=== PATIENT | female | born 1950 | race Caucasian/White ===

== ENCOUNTER 2018-07-15 07:40 | Day surgery (SDC) | payer MEDICARE, OTHER ==
[2018-07-15] MEDS ORDERED: fentaNYL* 50 MCG/ML 2 ML VIAL (100 MCG VIAL) ONE (08:39)
[2018-07-15] MEDS ORDERED: Midazolam* 1 MG/ML 2 ML VIAL (2 MG) ONE ×2 (08:40→09:10)
[2018-07-15 09:42] VITALS: BP 102/71
--- NOTE | 2018-07-15 12:39 | OP ---
DATE OF OPERATION/DATE OF DICTATION: 07/15/2018 - [facility] DATE OF : 1950. SURGEON: Dr. Amilcar Cardenas. PUBLIC POLICY MANAGER: None. ANESTHESIA: Topical with intravenous sedation. PRE-OP DIAGNOSIS: Cataract, right eye. POST-OP DIAGNOSIS: Cataract, right eye. OPERATIVE PROCEDURE: Phacoemulsification and cataract extraction with posterior chamber intraocular lens implant, right eye. COMPLICATIONS: None. BLOOD LOSS: None. DESCRIPTION OF PROCEDURE: The patient was brought to the operating room and received a small amount of intravenous sedation. A drop of Tetracaine was placed in her right eye. She was prepped and draped in the usual sterile fashion for ophthalmic surgery and attention was directed to the right eye where a speculum was placed. A paracentesis was created at the 11 o'clock position and 0.1 cc of 1 percent preservative-free Lidocaine was injected into the anterior chamber followed by DisCoVisc. The eye was digitally stabilized while a 2.75 mm keratome was used to create a triplanar clear corneal incision at the 9 o'clock position. A continuous curvilinear capsulorrhexis was created with a cystotome and Utrata forceps. BSS on a cannula was used to hydrodissect the lens from the capsule. Phacoemulsification was performed in a divide-and- conquer technique to create four fragments which were removed. Residual cortical material was removed with irrigation and aspiration. DisCoVisc was used to inflate the capsular bag and an AUOOTO 18.0 diopter lens was folded and inserted into the capsular bag. DisCoVisc was removed using irrigation and aspiration. BSS on a cannula was used to hydrate the corneal stroma and seal the wound. At the end of the case the pupil was round and the lens was centered. The eye was of normal pressure and the wound was water tight. The speculum was removed and topical Maxitrol ointment was placed on the surface of the eye. The eye was closed, patched and shielded and the patient was sent to the recovery room in stable condition with post operative instructions and follow-up appointment given. [id number]/[facility] #: [id number] MTDD
[2018-07-15] MEDS ORDERED: Neomycin/Polymy/Dex OPHTH.OIN* 3.5 GM ONE (16:09)
[2018-07-15] MEDS ORDERED: Lidocaine 1%* 5 ML VIAL ONE (16:09)
[2018-07-15] MEDS ORDERED: Tetracaine 0.5% OPTH.SOL 4 ML* 1 DROP BTL ONE (16:09)
[2018-07-15] MEDS ORDERED: Phenylephrine 2.5% OPTH.SOL* 2 ML BTL ONE (16:09)
[2018-07-15] MEDS ORDERED: Tropicamide 1% OPTH.SOL* BTL ONE (16:09)
[2018-07-15] MEDS ORDERED: Ketorolac 0.5% OPHTH (NF) 0.5 % 5 ML BTL ONE (16:09)
[2018-07-15] MEDS ORDERED: Cyclopentolate 1% OPTH.SOL* 2 ML BTL ONE (16:09)
== END 2018-07-15 09:37 | disposition home or self-care (01) ==
LOC: OREAST 07:40
PROVIDERS: ATTEND Ophthalmology
DX: H25.041 Posterior subcapsular polar age-related cataract, right eye (principal); E78.5 Hyperlipidemia, unspecified; K21.9 Gastro-esophageal reflux disease without esophagitis
CPT/HCPCS: A9270-GY; J2250; J3010; V2632

== ENCOUNTER 2018-07-22 08:26 | Day surgery (SDC) | payer MEDICARE, OTHER ==
[~2018-07-22 08:26] MED LIST: Acetaminophen TAB* 325 MG PO PRN; Buffered Lidocaine 0.9% SYRIN* 5 ML/SYR SYRINGE INTRADERM ONE
[2018-07-22 08:46] VITALS: BP 113/65
[2018-07-22] MEDS ORDERED: Midazolam* 1 MG/ML 2 ML VIAL (2 MG) ONE ×2 (10:01→11:40)
[2018-07-22] MEDS ORDERED: fentaNYL* 50 MCG/ML 2 ML VIAL (100 MCG VIAL) ONE (10:01)
[2018-07-22] MEDS ORDERED: Acetaminophen TAB* 325 MG ONE (11:25)
[2018-07-22] MEDS ORDERED: Lidocaine 1%* 5 ML VIAL ONE (13:34)
[2018-07-22] MEDS ORDERED: Tropicamide 1% OPTH.SOL* BTL ONE (13:34)
[2018-07-22] MEDS ORDERED: Tetracaine 0.5% OPTH.SOL 4 ML* 1 DROP BTL ONE (13:34)
[2018-07-22] MEDS ORDERED: Ketorolac 0.5% OPHTH (NF) 0.5 % 5 ML BTL ONE (13:34)
[2018-07-22] MEDS ORDERED: Neomycin/Polymy/Dex OPHTH.OIN* 3.5 GM ONE (13:34)
[2018-07-22] MEDS ORDERED: Cyclopentolate 1% OPTH.SOL* 2 ML BTL ONE (13:34)
[2018-07-22] MEDS ORDERED: Phenylephrine 2.5% OPTH.SOL* 2 ML BTL ONE (13:34)
--- NOTE | 2018-07-23 03:01 | OP ---
DATE OF OPERATION: 07/22/18 - [facility] DATE OF : [birth year]. SURGEON: Dr. Amilcar Cardenas. PHYSICIST SOLID STATE: None. ANESTHESIA: Topical MAC. PRE-OP DIAGNOSIS: Cataract, left eye. POST-OP DIAGNOSIS: Cataract, left eye. OPERATIVE PROCEDURE: Phacoemulsification and cataract extraction with posterior chamber intraocular lens implant, left eye. COMPLICATIONS: Posterior capsular tear. DESCRIPTION OF PROCEDURE: The patient was brought to the operating room and received a drop of tetracaine to her left eye. She was given intravenous sedation. The patient was prepped and draped in the usual sterile fashion for ophthalmic surgery and attention was directed to the left eye where a speculum was placed. A paracentesis was created at the 5 o'clock position and 0.1 cc of 1 % preservative- free Lidocaine was injected into the anterior chamber followed by DisCoVisc. The eye was digitally stabilized. A 2.75 mm keratome was used to create a triplanar clear corneal incision. A continuous curvilinear capsulorrhexis was created with a cystotome and Utrata forceps. BSS on the cannula was used to hydrodissect the lens from the capsule. Phacoemulsification was performed in a [id number]-njx-stcfrfv technique to create four fragments which were removed. Residual cortical material was removed with irrigation and aspiration. Capsular polishing was undertaken. At this point, a small fiona in the posterior capsule was noted, possibly due to the active polishing; however, no vitreous presented itself. DisCoVisc was used to tamponade the area and inflate the capsular bag and an AU00T0 18.5 diopter as planned was introduced into the capsular bag. Viscoelastic was removed gently with irrigation and aspiration with care not to enlarge the posterior capsular tear or pull vitreous forward. BSS on the cannula was used to hydrate the corneal stroma and seal the wound. At the end of the case the pupil was round and the lens was centered and stable. The eye pressure appeared normal and there was no vitreous visible. The wound was watertight, so the speculum was removed and topical Maxitrol ointment was placed on the surface of the eye. The eye was closed, patched and shielded and the patient was sent to the recovery room in stable condition with post operative instructions and follow- up appointment given. [id number]/[facility] #: [id number] [facility] HOSPITALElle
== END 2018-07-22 11:34 | disposition home or self-care (01) ==
LOC: OREAST 08:26
PROVIDERS: ATTEND Ophthalmology
DX: H25.12 Age-related nuclear cataract, left eye (principal); K21.9 Gastro-esophageal reflux disease without esophagitis; Z88.0 Allergy status to penicillin; Z88.2 Allergy status to sulfonamides
CPT/HCPCS: A9270-GY; J2250; J3010; V2632

== ENCOUNTER 2018-10-31 09:37 | Emergency (ER) | payer MEDICARE, OTHER ==
--- OUTSIDE RECORDS SUMMARY | 2018-10-31 09:51 | XMS REPORT | Continuity of Care Document ---
:1950 Author Organization [facility] Support Name Relationship Address Phone DIMITRI RENEE spouse [address] [place] [address] [place] [address] DIMITRI RENEE spouse [address] [place] [address] [place] [address] Allergies and Intolerances Code Code Allergy Type Reaction Severity Start End Date Status System Substance Date 7986 RXNorm Penicillins Drug Unknown Active allergy (disorder) 85730 RXNorm Sulfa Drug Unknown Active (Sulfonamide allergy Antibiotics) (disorder) 4053 RXNorm Erythromycin Drug Unknown Active Base allergy (disorder) Medications RxNorm Medication Dose Route Instructions Start Date End Date Status ca oral orally daily Active ibuprofen oral orally prn pain Active mvi oral orally daily Active Problems Code Code System Problem Name Start Date End Date Status 018510452 SNOMED-CT Backache U Active Procedures Code Code System Procedure Date LEFT BREAST LUMPECTOMY U Results Laboratory Results Order: VIT D 25 HYDROXY Specimen Source: Body Site: Legend: (G,H)=High, (GG,HH,CH,#H)=Above High Threshold, (#,L)=Low, (# #,CL,#L,LL)=Below Low Threshold, (C,CC,CA,#A,A)=Abnormal LOINC Test Result Flag Range Units Date 10072-0 1Vit D+metab SerPl-mCnc 49 30-95 NG/ML 10/15/2018 09:48 Interpretive 1VITAMIN D STATUS VITAMIN D Level Stephanie: DEFICIENCY <20 NG/ML INSUFFICIENCY 20-30 NG/ML SUFFICIENCY 31-96 NG/ML POTENTIAL TOXICITY >96 NG/ML Performing Lab Footnotes:[facility] - [id number] - [address] [place] [address] ROSA LANDERSOMD1 Social History Code Code System Social History Description Dates Observed Observation 262905629 SNOMED CT Current Smoking Unknown if ever Status smoked UNK AdministrativeGender Sex Assigned At Unknown Vital Signs No data in the system Goals Section No data in the system Health Concerns No data in the systemEncounter Diagnosis Date Code Code System Diagnosis Status M85.89 ICD10 OTH D/O BONE DENSITY STRUCT MX SITE Active Advance Directives HEALTH [facility] Directive Type Effective Date Rn Documentation Specialist Notes Supporting Document Name Address Phone No Directive 12/24/2011 Not Not Not dimitri Yes Type 10:45:42 AM Specified Specified Specified [place]--[phone] specified Family History No data in the system Functional Status No data in the system Immunizations No data in the system Medical Equipment No data in the system Mental Status No data in the system Assessment and Plan Assessments No data in the systemPlan Of Treatment No data in the systemPending Tests No data in the system Hospital Discharge Instructions No data in the system Reason for Visit No data in the system
[2018-10-31 09:54] VITALS: BP 127/77
--- NOTE | 2018-10-31 10:05 | UC ---
Minor Trauma HPI - HPI Summary HPI Summary: 67-year-old female presents with complaints of headache and left upper arm pain after slipping and falling 1 week ago. States she slipped on some ice in the parking lot of [employer] striking her left arm and the back of her head on a metal container that has some propane fuel. States she initially felt okay after the injury since that time has had a persistent "throbbing" headache that has waxed and waned with intensity. She has noticed some tenderness and bruising to her mid left upper arm. Denies visual disturbances, dizziness, vertigo, confusion, memory loss, weakness, numbness, tingling of the extremities , chest pain, palpitations, shortness of breath, abdominal pain, nausea, vomiting, or any other injury. - History of Current Complaint Chief Complaint: UCHeadInjury Stated Complaint: HEADACHES DO TO FALL Time Seen by Provider: 10/31/18 10:02 Hx Obtained From: Patient Pain Intensity: 8 - Allergies/Home Medications Allergies/Adverse Reactions: Allergies Allergy/AdvReac Type Severity Reaction Status Date / Time erythromycin base Allergy Hives Verified 10/31/18 09:55 Penicillins Allergy Hives Verified 10/31/18 09:55 Sulfa (Sulfonamide Allergy Hives Verified 10/31/18 09:55 Antibiotics) PMH/Surg Hx/FS Hx/Imm Hx Endocrine History: Dyslipidemia Other History Of: Negative For: Anticoagulant Therapy - Surgical History Surgical History: Yes Surgery Procedure, Year, and Place: hysterectomy 12/2011. left breast lumpectomy [facility] 6 YEARS AGO - Family History Known Family History: Positive: Non-Contributory - Social History Occupation: Retired Lives: With Family Alcohol Use: Occasionally Substance Use Type: None Smoking Status (MU): Never Smoked Tobacco Have You Smoked in the Last Year: No - Immunization History Most Recent Tetanus Shot: 2011 Review of Systems All Other Systems Reviewed And Are Negative: Yes Constitutional: Positive: Negative Skin: Positive: Bruising Eyes: Negative: Blurred Vision, Diplopia, Photophobia Respiratory: Negative: Shortness Of Breath Cardiovascular: Negative: Palpitations, Chest Pain Gastrointestinal: Negative: Abdominal Pain, Vomiting, Nausea Genitourinary: Positive: Negative Motor: Negative: Weakness Neurovascular: Negative: Decreased Sensation Musculoskeletal: Positive: Other: - See HPI Neurological: Positive: Headache. Negative: Weakness, Paresthesia, Numbness Is Patient Immunocompromised?: No Physical Exam - Summary Physical Exam Summary: GENERAL APPEARANCE: Well developed, well nourished, alert and cooperative, and appears to be in no acute distress. HEAD: Atraumatic. normocephalic. EYES: PERRL, EOM intact. Vision is grossly intact. EARS: External auditory canals and tympanic membranes clear, hearing grossly intact. NOSE: No nasal discharge. THROAT: Oral cavity and pharynx normal. No inflammation, swelling, exudate, or lesions. Teeth and gingiva in good general condition. NECK: Neck supple, non-tender. CARDIAC: Normal S1 and S2. No S3, S4 or murmurs. Rhythm is regular. There is no peripheral edema, cyanosis or pallor. Extremities are warm and well perfused. Capillary refill is less than 2 seconds. LUNGS: Clear to auscultation without rales, rhonchi, wheezing or diminished breath sounds. ABDOMEN: Positive bowel sounds. Soft, nondistended, nontender. No guarding or rebound. No masses or hepatosplenomegally. MUSKULOSKELETAL: ROM intact to all extremities. No joint erythema or tenderness. Normal muscular development. Normal gait. BACK: Examination of the spine reveals normal posture, no spinal deformity or tenderness, decreased range of motion or muscular spasm. EXTREMITIES: Tenderness and ecchymosis to left mid humerus without gross deformity. Peripheral pulses intact. NEUROLOGICAL: CN II-XII intact. Strength and sensation symmetric and intact throughout. Reflexes 2+ throughout. Cerebellar testing normal. SKIN: Skin normal color, texture and turgor. Triage Information Reviewed: Yes Vital Signs: Initial Vital Signs Temp 97 F 10/31/18 09:50 Pulse 89 10/31/18 09:50 Resp 18 10/31/18 09:50 BP 127/77 10/31/18 09:50 Pulse Ox 99 10/31/18 09:50 Vital Signs Reviewed: Yes Diagnostics - Radiology No standard instances Radiology Interpretation Completed By: Radiologist Summary of Radiographic Findings: Patient Name: TORIBIO RENEE . Ordering Physician: Syd Robles NP Acct.#: [id number]. : 1950 Age: 67 Sex: F Location: [facility]. Exam Date: 10/31/18 1016 ADM Status: REG ER. Order Information: CT BRAIN WO. Accession Number: [id number]. CPT: 12814. HISTORY: TOLENTINO s/p head injury. COMPARISONS: None. TECHNIQUE: Multiple contiguous axial CT scans were obtained of the head without intravenous contrast. FINDINGS: HEMORRHAGE/INFARCT: There is no hemorrhage or acute infarct. MASSES/SHIFT: There is no mass or shift. EXTRA- AXIAL SPACES: There are no extra-axial fluid collections. SULCI AND VENTRICLES : The sulci and ventricles are normal in size and position for the patient's stated age. CEREBRUM: There are no focal parenchymal abnormalities. BRAINSTEM : There are no focal parenchymal abnormalities. CEREBELLUM: There are no focal parenchymal abnormalities. VESSELS: The vessels are grossly normal. PARANASAL SINUSES: The paranasal sinuses are clear. ORBITS: The orbits are unremarkable. BONES AND SOFT TISSUE: No bone or soft tissue abnormalities are noted. OTHER : None. IMPRESSION: NO ACUTE INTRACRANIAL PATHOLOGY. Order Information: HUMERUS LEFT. Accession Number: [id number]. CPT: 83357. HISTORY: pain s/p fall. COMPARISONS: None. VIEWS: 2 , Frontal internal rotation and external rotation views of the left humerus. FINDINGS: BONE DENSITY: There is diffuse osteopenia. BONES: There is no displaced fracture. 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 and glenohumeral joints. ALIGNMENT: There is no dislocation. SOFT TISSUES: Unremarkable. OTHER FINDINGS: None. IMPRESSION: NO ACUTE OSSEOUS INJURY. Minor Trauma Course/Dx - Course Course Of Treatment: 67-year-old female presents with complaints of headache and left upper arm pain after slipping and falling 1 week ago. States she slipped on some ice in the parking lot of [employer] striking her left arm and the back of her head on a metal container that has some propane fuel. States she initially felt okay after the injury since that time has had a persistent "throbbing" headache that has waxed and waned with intensity. She has noticed some tenderness and bruising to her mid left upper arm. Denies visual disturbances, dizziness, vertigo, confusion, memory loss, weakness, numbness, tingling of the extremities, chest pain, palpitations, shortness of breath, abdominal pain, nausea, vomiting, or any other injury. Afebrile. VSS. Exam was overall unremarkable except for a minor contusion to her left upper arm. CT head negative. X-ray left upper arm negative. Recommend conservative treatment for closed head injury and left upper arm contusion. She is to follow up with her PCP in 3 days if no improvement in symptoms. Anticipatory guidance and warning symptoms were reviewed with the patient and spouse. Verbalizes understanding and agrees with POC. - Differential Dx/Diagnosis Provider Diagnosis: Closed head injury without loss of consciousness, Contusion of left upper arm Discharge - Sign-Out/Discharge Documenting (check all that apply): Patient Departure All imaging exams completed and their final reports reviewed: Yes - Discharge Plan Condition: Stable Disposition: HOME Patient Education Materials: Head Injury (ED), Contusion in Adults (ED) Referrals: Katie Williamson MD [Primary Care Provider] - 3 Days (If no improvement in symptoms.) Additional Instructions: The CT scan of your head and the x-ray of your arm performed in the clinic today were both normal. Take acetaminophen (Tylenol) or ibuprofen (Advil, Motrin) according to directions as needed for pain. Follow up with you primary care provider in 3 days if there is no improvement in your symptoms. Seek immediate medical attention in the emergency room if your headache worsens despite taking pain medication, you have visual disturbances, confusion, memory loss, dizziness, slurrred or difficulty speaking, weakness, numbness, or tingling in the arms or legs, chest pain, shortness of breath, abdominal pain, persistent vomiting, or any worsening of symptoms. - Billing Disposition and Condition Condition: STABLE Disposition: Home
== END 2018-10-31 11:10 | disposition home or self-care (01) ==
LOC: UCEAST 09:37
DX: S09.90XA Unspecified injury of head, initial encounter (principal); S40.022A Contusion of left upper arm, initial encounter; W00.0XXA Fall on same level due to ice and snow, initial encounter; Y93.01 Activity, walking, marching and hiking; Y92.481 Parking lot as the place of occurrence of the external cause; Z88.1 Allergy status to other antibiotic agents; Z88.0 Allergy status to penicillin; Z88.2 Allergy status to sulfonamides
CPT/HCPCS: 70450; 99211; G0463

== ENCOUNTER 2019-01-26 16:42 | Emergency (ER) | payer MEDICARE, OTHER ==
[2019-01-26 16:58] VITALS: BP 116/79
--- NOTE | 2019-01-26 17:09 | UC ---
Bite Injury/Animal HPI - HPI Summary HPI Summary: 68-year-old female comes in with chief complaint of a tick attached to the posterior aspect of her left leg. She felt nauseous prior to arrival. She's not sure when he got attached. It's painful to touch. It's less painful when she doesn't touch it. No fevers or chills feels well otherwise. - History of Current Complaint Chief Complaint: UCSkin Stated Complaint: TICK BITE Time Seen by Provider: 01/26/19 17:01 Pain Intensity: 2 - Allergies/Home Medications Allergies/Adverse Reactions: Allergies Allergy/AdvReac Type Severity Reaction Status Date / Time erythromycin base Allergy Hives Verified 01/26/19 16:58 Penicillins Allergy Hives Verified 01/26/19 16:58 Sulfa (Sulfonamide Allergy Hives Verified 01/26/19 16:58 Antibiotics) PMH/Surg Hx/FS Hx/Imm Hx Previously Healthy: Yes Other History Of: Negative For: Anticoagulant Therapy - Surgical History Surgical History: Yes Surgery Procedure, Year, and Place: hysterectomy 12/2011. left breast lumpectomy [facility] 6 YEARS AGO - Family History Known Family History: Positive: Non-Contributory - Social History Alcohol Use: Occasionally Substance Use Type: None Smoking Status (MU): Never Smoked Tobacco Have You Smoked in the Last Year: No - Immunization History Most Recent Tetanus Shot: 2011 Review of Systems All Other Systems Reviewed And Are Negative: Yes Constitutional: Positive: Negative Skin: Positive: Other - see hpi Eyes: Positive: Negative ENT: Positive: Negative Respiratory: Positive: Negative Cardiovascular: Positive: Negative Gastrointestinal: Positive: Negative Motor: Positive: Negative Neurovascular: Positive: Negative Musculoskeletal: Positive: Negative Neurological: Positive: Negative Psychological: Positive: Negative Is Patient Immunocompromised?: No Physical Exam Triage Information Reviewed: Yes Appearance: Well-Appearing, No Pain Distress, Well-Nourished Vital Signs: Initial Vital Signs Temp 97.8 F 01/26/19 16:56 Pulse 80 01/26/19 16:56 Resp 12 01/26/19 16:56 BP 116/79 01/26/19 16:56 Pulse Ox 98 01/26/19 16:56 Vital Signs Reviewed: Yes Eye Exam: Normal Eyes: Positive: Conjunctiva Clear Neck: Positive: Supple Respiratory: Positive: Normal breath sounds Musculoskeletal Exam: Normal Musculoskeletal: Positive: Strength Intact, ROM Intact Neurological Exam: Normal Neurological: Positive: Alert, Muscle Tone Normal Psychological Exam: Normal Psychological: Positive: Age Appropriate Behavior Skin: Positive: Other - Imbedded tick left posterior leg with 5mm of erythema. No bulls eye rash. Tick removed with tick twister. Bite Injury Course/Dx - Differential Dx/Diagnosis Provider Diagnosis: Tick bite of left lower leg Discharge - Sign-Out/Discharge Documenting (check all that apply): Patient Departure All imaging exams completed and their final reports reviewed: No Studies - Discharge Plan Condition: Stable Disposition: HOME Prescriptions: DOXYcycline CAP(*) [DOXYcycline 100MG CAP(*)] 200 mg PO ONCE #2 cap Patient Education Materials: Tick Bite (ED) Referrals: Katie Williamson MD [Primary Care Provider] - Additional Instructions: FOLLOW UP WITH YOUR DOCTOR IF NOT COMPLETELY IMPROVED. GET REEVALUATED SOONER IF YOUR CONDITION WORSENS OR ANY QUESTIONS OR CONCERNS. - Billing Disposition and Condition Condition: STABLE Disposition: Home
== END 2019-01-26 17:20 | disposition home or self-care (01) ==
LOC: UCEAST 16:42
DX: S80.862A Insect bite (nonvenomous), left lower leg, initial encounter (principal); W57.XXXA Bitten or stung by nonvenomous insect and other nonvenomous arthropods, initial encounter; Y92.9 Unspecified place or not applicable; Z88.1 Allergy status to other antibiotic agents; Z88.0 Allergy status to penicillin; Z88.2 Allergy status to sulfonamides
CPT/HCPCS: 99212; G0463